=== PATIENT | female | born 1980 | race Caucasian/White ===

== ENCOUNTER 2024-02-25 13:07 | Emergency (ER) | payer MEDICAID ==
[~2024-02-25] VITALS: Ht 167.6 cm; Wt 82.0 kg
[2024-02-25 13:20] VITALS: BP 136/77; PULSE 78; RESP 16; TEMP 98.4; O2SAT 98
== END 2024-02-25 19:20 | disposition left against medical advice (07) ==
LOC: ER 14:32
DX: M54.9 Dorsalgia, unspecified (principal); V49.9XXA Car occupant (driver) (passenger) injured in unspecified traffic accident, initial encounter; Y93.89 Activity, other specified; Y92.89 Other specified places as the place of occurrence of the external cause; Y99.8 Other external cause status
CPT/HCPCS: 81025; 99283